=== PATIENT | female | born 1950 | race Caucasian/White ===

== ENCOUNTER → 2016-05-28 | Outpatient (CLI) | payer BC, OTHER ==
[~2016-05-28] MED LIST: ACID CONTROLLER10 MG PO; ALBUTEROL2.5 MG/0.5 INH; AMLODIPINE BESY10 MG PO; AMOX TR-K CLV1 EAC4 PO; ATIVAN1 MG PO; ATORVASTATIN CA10 MG PO; BENTYL20 MG PO; CARISOPRODOL 3350 MG PO; CARISOPRODOL350 MG PO; CARVEDILOL12.5 MG PO; DEPAKOTE500 MG PO; DESYREL300 MG PO; EFFEXOR; ENDOCET 10-3251 EACH PO; ENOXAPARIN30 MG/0.1 SQ; FELDENE PO; FELDENE20 MG PO; FENTANYL1 EAC1 TD; FLEXERIL PO; HYDRALAZINE20 MG/M1 IV; HYDROCODONE-AP1 EAC6 PO; HYZAAR 50-12.51 TAB PO; KLOR-CON 1010 MEQ PO; LACTULOSE10 GM/153 PO; LINZESS145 MCG PO; LORAZEPAM 1 MG T1 M1 PO; LORAZEPAM 1 MG T1 MG PO; MIRALAX17 GM PO; MIRALAX255 GM PO; NABUMETONE 500500 M1 PO; NEURONTIN 300300 M1 PO; NORCO 5-325 TA1 EACH PO; NORVASC 5 MG TAB5 MG PO; NUCYNTA100 MG PO; OXYCODONE-ACET1 EAC2 PO; OXYCONTIN10 M1 PO; OXYCONTIN40 MG PO; OXYCONTIN60 MG PO; PILOCARPINE HC7.5 MG PO; PIROXICAM20 MG PO; PREDNISONE 10 M10 MG PO; PREDNISONE 5 MG5 M1 PO; PREMARIN; PREMARIN0.3 MG PO; PREMARIN0.625 MG PO; PREMPRO 0.625-1 EACH PO; PREVIFEM1 EACH PO; RELAFEN500 MG PO; RESTORIL15 MG PO; RESTORIL30 MG PO; SAVELLA100 MG PO; SAVELLA50 MG PO; SIMVASTATIN20 MG PO; TOPAMAX 100 MG100 MG PO; TRAMADOL 50 MG50 MG PO; TRAZODONE 150150 M1 PO; TRAZODONE HCL50 MG PO; TYLENOL325 MG PO; ULTRAM 50MG TAB50 MG PO; VALIUM2 MG PO; VIVELLE-DOT1 EAC1 TD; ZANAFLEX6 MG PO; [UNRECOGNIZED DRUG - OTHER]; [UNRECOGNIZED DRUG - OTHER]
== END ==
LOC: NUC 07:39
DX: R07.9 Chest pain, unspecified (principal); R06.00 Dyspnea, unspecified; I10 Essential (primary) hypertension; E78.5 Hyperlipidemia, unspecified

== ENCOUNTER 2017-07-04 07:11 | Emergency (ER) | payer BC, OTHER ==
[~2017-07-04] VITALS: Ht 165.1 cm; Wt 48.5 kg
[~2017-07-04 07:11] MED LIST changes: +PERCOCET PO
[2017-07-04 07:25] VITALS: BP 148/78
[2017-07-04] MEDS ORDERED: OXYCONTIN15 MG PO (07:43)
== END 2017-07-04 08:04 | disposition home or self-care (01) ==
LOC: ER 07:11
DX: G89.29 Other chronic pain (principal); M54.5 Low back pain; Z76.0 Encounter for issue of repeat prescription; F41.9 Anxiety disorder, unspecified; M32.9 Systemic lupus erythematosus, unspecified; M79.7 Fibromyalgia; E78.5 Hyperlipidemia, unspecified; I10 Essential (primary) hypertension; Z88.2 Allergy status to sulfonamides; Z87.891 Personal history of nicotine dependence

== ENCOUNTER 2018-03-01 13:02 | Emergency (ER) | payer BC, OTHER ==
[~2018-03-01] VITALS: Ht 165.1 cm; Wt 49.4 kg
[~2018-03-01 13:02] MED LIST changes: +OXYCONTIN15 MG PO
[2018-03-01] MEDS ORDERED: MOBIC7.5 MG PO (16:32)
[2018-03-01] MEDS ORDERED: ZANAFLEX4 MG PO (16:32)
[2018-03-01 17:28] VITALS: BP 147/82
== END 2018-03-01 18:21 | disposition home or self-care (01) ==
LOC: ER 13:02
DX: M79.7 Fibromyalgia (principal); G89.29 Other chronic pain; Z87.891 Personal history of nicotine dependence; Z88.2 Allergy status to sulfonamides; F41.9 Anxiety disorder, unspecified; M32.9 Systemic lupus erythematosus, unspecified; I10 Essential (primary) hypertension; E78.5 Hyperlipidemia, unspecified; Z90.710 Acquired absence of both cervix and uterus

== ENCOUNTER 2018-10-12 10:02 | Emergency (ER) | payer BC, OTHER ==
[~2018-10-12] VITALS: Ht 160 cm; Wt 53.5 kg
[~2018-10-12 10:02] MED LIST changes: +MOBIC7.5 MG PO; +ZANAFLEX4 MG PO
[2018-10-12 11:15] LABS: HEMOGLOBIN 13.2 gm/dL (12.0-15.0); MCH 32.8 pg (26.0-34.0); MCHC 33.8 g/dL (28.0-37.0); MCV 96.9 fL (80.0-100.0); RBC 4.03 mil/uL (4.20-5.00); RDW 13.1 % (10.5-14.5); WBC 4.4 thou/uL (4.0-11.0)
[2018-10-12 11:19] LABS: CALCIUM 9.1 mg/dL (8.5-10.1); CREATININE 1.1 mg/dL (0.6-1.0); POTASSIUM 4.1 mmol/L (3.5-5.1)
[2018-10-12] MEDS ORDERED: TRAMADOL 50 MG50 MG PO (11:25)
[2018-10-12 11:56] VITALS: BP 152/62
== END 2018-10-12 11:57 | disposition home or self-care (01) ==
LOC: ER 10:02
PROVIDERS: Emergency Medicine
DX: M54.5 Low back pain (principal); G89.29 Other chronic pain; M79.7 Fibromyalgia; G20 Parkinson's disease; M32.9 Systemic lupus erythematosus, unspecified; I10 Essential (primary) hypertension; E78.5 Hyperlipidemia, unspecified; Z79.899 Other long term (current) drug therapy; Z88.2 Allergy status to sulfonamides; Z87.891 Personal history of nicotine dependence; Z90.710 Acquired absence of both cervix and uterus

== ENCOUNTER 2018-10-26 05:35 | Inpatient (IN) | payer BC, OTHER ==
[~2018-10-26] VITALS: Ht 165.1 cm; Wt 53.5 kg
[2018-10-26] VITALS (11 sets, daily range): BP systolic 94–154; BP diastolic 52–77
--- NOTE | ~2018-10-26 | H ---
[facility] [place] [address] HISTORY AND PHYSICAL Name: CASI ALFARO Room #: 201-P ADM IN M.R.#: [id number] Admission: 10/26/18 Attend Phys: Sameera Perry MD Discharge: Date of : 48 Report #: [id number] THIS REPORT FOR: //name// CC: Sameera Benson DATE OF SERVICE: 10/26/2018 PRIMARY CARE PHYSICIAN: Dr. Jam Benson. CHIEF COMPLAINT: Syncopal episode x 2 with a fall yesterday and today. HISTORY OF PRESENT ILLNESS: The patient is a very pleasant 68-year-old female with a known history of hypertension, fibromyalgia, scoliosis and chronic pain syndrome with DJD, recently got diagnosed with Parkinson disease. The patient informs me that yesterday she was not feeling well and felt lightheaded and dizzy and fell down. The patient informs me that this morning again at 2:00 o'clock in the morning she woke up and was taking her blood pressure medication and had another episode of syncope when her checked her blood pressure, lying down was 101 and standing was 70 and so he brought her to the hospital for further evaluation. The patient informs me that she has not had any associated bladder or bowel incontinence. She does not have any weakness or numbness of any part of the body and she had been dealing with weakness generalized and fatigue. The patient informs me that she saw a neurologist in [facility], Dr. Bonilla and recently was diagnosed with Parkinson disease; however, she has been on prednisone for a long time because of her fibromyalgia. Apparently, she is being tapered off of prednisone. She was on 10 mg daily. Now, she is on 4 mg daily. The patient denies any associated palpitations, chest pain or cough or hemoptysis. The patient denies any sore throat, sinus drainage, fever, chills, night sweats, nausea, vomiting, diarrhea or constipation. Three months ago, she had lower back pain that started, however, after the fall yesterday and today her back pain has exacerbated significantly. PAST MEDICAL HISTORY: Significant for; 1. Hypertension. 2. Fibromyalgia. 3. Chronic pain syndrome. 4. Scoliosis. 5. Hormone replacement therapy. 6. Hyperlipidemia. 7. Elevated calcium score on cardiac CT. PAST SURGICAL HISTORY: The patient has had; 1. Left upper rib removal. 2. Breast augmentation. 3. Left TMJ surgery. [address] [address] HISTORY AND PHYSICAL Name: CASI ALFARO DAMON Room #: 201-P [facility] IN M.R.#: [id number] Admission: 10/26/18 Attend Phys: Sameera Perry MD Discharge: Date of : 48 Report #: [id number] 4. Bilateral carpal tunnel surgery. 5. Left ankle surgery. 6. Hysterectomy. 7. Small-bowel obstruction and surgery. ALLERGIES: The patient is allergic to SULFA, which causes swelling and hives. PERSONAL AND SOCIAL HISTORY: The patient quit tobacco 40 years ago and does not drink alcohol. Lives at home with her and is full code. FAMILY HISTORY: Mother with CHF and father after the third myocardial infarction and at the time of , he was 56 years old. REVIEW OF SYSTEMS: A 10-point review of systems was done and please see the HPI above. PHYSICAL EXAMINATION: VITAL SIGNS: When the patient presented to the ER, the patient had a heart rate 63, respirations 16, blood pressure 94/52, pulse oximeter 95% on room air and weight is 53.52 kilos. GENERAL: Alert and oriented to time, place and person. Very pleasant female who is in no acute distress and eating lunch. HEENT: Normocephalic, atraumatic. Pupils equally round, reactive to light. Conjunctivae clear. Sclerae nonicteric. Extraocular muscle movement intact. Oropharynx is clear. Mucous membranes moist. NECK: Supple. No JVD, no lymphadenopathy. HEART: S1, S2, regular. No murmur, no S3, no S4. LUNGS: Clear to auscultation bilaterally, without any crackles or wheezes. ABDOMEN: Soft, nontender, nondistended, normal active bowel sounds. EXTREMITIES: No edema both lower extremities. NEUROLOGIC: Completely nonfocal. SKIN: Bilateral cheeks with rosacea like appearance and no rash otherwise noted and no skin breakdown noted. MUSCULOSKELETAL: The patient has scoliosis in back, but no CVA tenderness noted. HOME MEDICATIONS: 1. Tramadol. 2. Tizanidine. 3. Meloxicam. 4. Atorvastatin. 5. Topiramate. 6. Trazodone. 7. Oxycodone. 8. Premarin. 9. Tylenol. [address] [address] HISTORY AND PHYSICAL Name: CASI ALFARO Room #: 201-P [facility] IN M.R.#: [id number] Admission: 10/26/18 Attend Phys: Sameera Perry MD Discharge: Date of : 48 Report #: [id number] 10. Milnacipran. 11. Linzess or linaclotide. LABORATORY AND X-RAYS: Sodium 140, potassium 3.5, chloride 106, bicarbonate 26, anion gap 8, BUN 21, creatinine 1.1, calculated GFR 49, glucose 94, calcium 9.0, total bilirubin 0.3, AST 10, ALT 18, alkaline phosphatase 39. Troponin I less than 0.06. Total protein 6.5, albumin 3.5. Hematology indicates WBC 5.8, hemoglobin 13.7, hematocrit 40.3, platelet count 172. Differential within normal limits. Urinalysis completely negative with a pH ____. Chest x-ray, CT scan of the head is negative. No acute process and the chest x-ray is completely negative as well. EKG normal sinus rhythm and rate controlled. ASSESSMENT AND PLAN: 1. Fall with syncopal episode, sudden onset, appears to be related to postural changes. The patient had been on prednisone for a long time with a presumed diagnosis of lupus and fibromyalgia and she is being tapered off of it. We will go ahead and add 8 a.m. cortisol level for tomorrow and if abnormal, then we will consult endocrine and work up adrenal insufficiency. 2. The patient is on Premarin and is a very high risk for venous thromboembolic activity. The patient does not have any lower extremity edema; however, we will go ahead and check D-dimer and if D-dimer is elevated, then we will do CTA chest, PE protocol. 3. Recent diagnosis of Parkinson disease. The patient is currently not on any medication. With new onset of syncopal episode and new diagnosis of Parkinson disease, we will go ahead and consult Neurology and see if the patient's diagnostic workup can be completed and management can be started. 4. Fibromyalgia. We will resume her home medications. 5. Hypertension. The patient is on Coreg. I will cut down on the dose of Coreg as the patient has significant bradycardia, so we will keep the heart rate around 60 if possible. 6. Hyperlipidemia. Resume her statin. 7. We will check CPK as well and AST is normal. 8. Chronic back pain with acute exacerbation after the fall. The patient has been on 15 mg of OxyContin p.o. q.6 hours p.r.n. extended release, which is extremely high dose and she is on meloxicam as well and tizanidine and tramadol. We will check the medication list history ____ discuss with the primary care physician on what the patient ____ discussed with the patient about gabapentin. We will hold nonsteroidal anti-inflammatory drug. 9. Deep vein thrombosis prophylaxis with heparin and GI prophylaxis with Pepcid. Gentle hydration. The patient has normal urine specific gravity and by clinical exam, she does not appear to be dehydrated, so I am not sure IV fluids will help in any way. However, BUN is mildly elevated, [place] [address] HISTORY AND PHYSICAL Name: ANGELINACASI DAMON Room #: 201-P [facility] IN M.R.#: [id number] Admission: 10/26/18 Attend Phys: Sameera Perry MD Discharge: Date of : 48 Report #: [id number] and give her normal saline fluid and we will keep track of hemoglobin as well as the patient has history of ____. Plan of care was discussed with the patient. By: 2214 2340 Sameera Perry MD /nt
[2018-10-26 06:51] LABS: URINE BILIRUBIN NEGATIVE (Negative); URINE BLOOD NEGATIVE (Negative); URINE COLOR YELLOW; URINE GLUCOSE-RANDOM* NEGATIVE (Negative); URINE KETONES NEGATIVE (Negative); URINE LEUKOCYTES NEGATIVE (Negative); URINE NITRITE NEGATIVE (Negative); URINE PROTEIN (DIPSTICK) NEGATIVE (Negative); URINE SPECIFIC GRAVITY 1.015 (1.005-1.035)
[2018-10-26 06:54] LABS: URINE CLARITY HAZY
[2018-10-26 06:57] LABS: ABSOLUTE NEUTROPHILS 3.7 thou/uL (1.4-8.2); BASOPHILS 1.5 % (0.0-2.0); EOSINOPHILS 1.6 % (0.0-3.0); HEMATOCRIT 40.3 % (37.0-47.0); HEMOGLOBIN 13.7 gm/dL (12.0-15.0); LYMPHOCYTES 27.7 % (24.0-44.0); MCH 32.9 pg (26.0-34.0); MCHC 33.9 g/dL (28.0-37.0); MONOCYTES 6.3 % (1.0-8.0); PLATELET COUNT 172 thou/uL (150-400); POLYS 62.9 % (36.0-66.0); RBC 4.15 mil/uL (4.20-5.00); RDW 13.1 % (10.5-14.5); WBC 5.8 thou/uL (4.0-11.0)
[2018-10-26 07:01] LABS: ANION GAP 8 mmol/L (7-16); BUN 21 mg/dL (7-18); CHLORIDE 106 mmol/L (98-107); CO2 26 mmol/L (21-32); CREATININE 1.1 mg/dL (0.6-1.0); GLUCOSE 94 mg/dL (74-106); POTASSIUM 3.5 mmol/L (3.5-5.1); SODIUM 140 mmol/L (136-145)
[2018-10-26 07:11] LABS: ALBUMIN 3.5 g/dL (3.4-5.0); SGOT 10 U/L (15-37); SGPT 18 U/L (30-65); TOTAL BILIRUBIN 0.3 mg/dL (<0.1-1.0); TOTAL PROTEIN 6.5 g/dL (6.4-8.2); TROPONIN-I <0.06 ng/mL (<0.06)
--- NOTE | 2018-10-26 08:42 | EKG ---
[place] [place] [address] [facility] [place] [address] ELECTROCARDIOGRAM REPORT Name: ANGELINACASI DAMON [id number] Admission: 10/26/18 Attend Phys: Discharge: Date of : 48 Report #: [id number] THIS REPORT FOR: //name// [facility] ED Test Date: 2018-10-26 Test Time: 06:36:54 Pat Name: CASI ALFARO Department: Room: Gender: F Insulation Hoseman: augie : 1950 Requested By: Navid Man Order Number: [id number] MD: Rudolph Hook Measurements Intervals [place] Rate: 55 P: 51 VA: 131 QRS: 36 QRSD: 87 T: 45 QT: 428 QTc: 410 Interpretive Statements Sinus bradycardia Atrial premature complex Baseline wander in lead(s) I,II,aVR Compared to ECG 12/24/2016 10:20:24 Atrial premature complex(es) now present Electronically Signed On 10-26-2018 8:42:13 CDT by Rudolph Hook [email or web address] <ELECTRONICALLY SIGNED> By: Rudolph Hook MD, [facility] 10/26/18 0842 [id number] 5 Rudolph Hook MD, FACC /EPI
[2018-10-26] MEDS ORDERED: COREG25 MG PO (12:50)
[2018-10-26] MEDS ORDERED: ATIVAN1 MG PO (12:51)
[2018-10-26] MEDS ORDERED: MYRBETRIQ50 MG PO (12:51)
[2018-10-26] MEDS ORDERED: CARBAMAZEPINE100 M2 PO (12:53)
[2018-10-26] MEDS ORDERED: LUNESTA3 MG PO (12:53)
[2018-10-26] MEDS ORDERED: CYMBALTA60 MG PO (12:54)
--- NOTE | 2018-10-26 16:28 | NUR ---
PT ADMITED FROM ER. ADMISSION HX AND ASSESSMENT COMPLETED. VSS. PT ORIENTED TO THE ROOM AND THE CALL SYSTEM. ORDERS NOTED. FALL PRECAUTION IMPLEMENTED. SB ON TELE. WILL CONTINUE TO MONITOR.
[2018-10-26] MEDS ORDERED: TRAZODONE 150150 M1 PO (20:30)
[2018-10-27] VITALS (10 sets, daily range): BP systolic 123–173; BP diastolic 75–91
--- NOTE | 2018-10-27 04:06 | NUR ---
ASSUMED CARE AT 1900. PT C/O PAIN IN UPPER BACK AND NECK AREA. PAIN MANAGED WITH MEDICATION. WILL CONTINUE TO MONITOR PT PER PLAN OF CARE.
[2018-10-27 08:43] LABS: HEMATOCRIT 38.6 % (37.0-47.0); HEMOGLOBIN 13.2 gm/dL (12.0-15.0); MCH 33.3 pg (26.0-34.0); MCHC 34.1 g/dL (28.0-37.0); MCV 97.6 fL (80.0-100.0); RBC 3.95 mil/uL (4.20-5.00); RDW 13.4 % (10.5-14.5); WBC 4.4 thou/uL (4.0-11.0)
[2018-10-27 08:52] LABS: CALCIUM 8.8 mg/dL (8.5-10.1); CREATININE 0.9 mg/dL (0.6-1.0); POTASSIUM 3.9 mmol/L (3.5-5.1)
--- NOTE | 2018-10-27 10:30 | 2DMMODE ---
[facility] [place] [address] 2 D/M-MODE ECHOCARDIOGRAM Name: CASI ALFARO DAMON Room #: 201-P ADM IN M.R.#: [id number] Admission: 10/26/18 Attend Phys: Sameera Perry, Discharge: Date of : 48 Date of Service: 10/27/18 1030 Report #: [id number] THIS REPORT FOR: //name// APPROVED REPORT Study performed: 10/27/2018 09:04:40 EXAM: Comprehensive 2D, Doppler, and color-flow Echocardiogram Patient Location: Echo lab Room #: 201 Status: routine BSA: 1.58 HR: 77 bpm BP: 173/91 mmHg Rhythm: NSR Other Information Study Quality: Adequate/breast implants/no subcostal view. Indications Near syncope. Hx: HTN, HLP. 2D Dimensions RVDd: 30.95 mm IVSd: 10.33 (7-11mm) LVOT Diam: 21.41 (18-24mm) LVDd: 42.79 mm PWd: 9.65 (7-11mm) Ascending Ao: 33.25 (22-36mm) LVDs: 26.36 (25-40mm) Aortic Root: 34.88 mm Volumes Left Atrial Volume (Systole) Single Plane 4CH: 27.88 mL Single Plane 2CH: 33.83 mL LA ESV Index: 22.00 mL/m2 Aortic Valve AoV Peak Nahun.: 1.24 m/s AO Peak Gr.: 6.16 mmHg LVOT Max P.55 mmHg LVOT Max V: 1.07 m/s ALVAREZ Vmax: 3.09 cm2 Mitral Valve E/A Ratio: 0.8 MV Decel. Time: 325.38 ms [facility] [address] [place] [address] 2 D/M-MODE ECHOCARDIOGRAM Name: CASI ALFARO [facility] Room #: 201-P [facility] IN .R.#: [id number] Admission: 10/26/18 Attend Phys: Sameera Perry, Discharge: Date of : 48 Date of Service: 10/27/18 1030 Report #: [id number] E Max Nahun.: 0.55 m/s MV A Nahun.: 0.71 m/s MV PHT: 94.36 ms IVRT: 69.20 ms Pulmonary Valve PV Peak Nahun.: 0.95 m/s PV Peak Gr.: 3.59 mmHg Pulmonary Vein P Vein S: 0.66 m/s P Vein A: 0.40 m/s P Vein D: 0.37 m/s P Vein A Dur.: 110.7 msec P Vein S/D Ratio: 1.78 Tricuspid Valve TR Peak Nahun.: 2.35 m/s TR Peak Gr.: 22.16 mmHg Left Ventricle The left ventricle is normal size. There is normal LV segmental wall motion. Moderate basal septal hypertrophy is present. Left ventricular systolic function is normal. LVEF is 60-65%. Mild diastolic dysfunction is present (impaired relaxation pattern). Right Ventricle The right ventricle is normal size. The right ventricular systolic function is normal. Atria The left atrium size is normal. The right atrium size is normal. Aortic Valve The aortic valve is normal in structure; mildly sclerotic. No aortic regurgitation is present. There is no aortic valvular stenosis. Mitral Valve The mitral valve is normal in structure. Trace mitral regurgitation. Tricuspid Valve The tricuspid valve is normal in structure. Mild tricuspid regurgitation. Estimated PAP is 22mmHg plus the right atrial pressure. [facility] [address] [place] [address] 2 D/M-MODE ECHOCARDIOGRAM Name: CASI ALFARO [facility] Room #: 201-P [facility] IN M.R.#: [id number] Admission: 10/26/18 Attend Phys: Sameera Perry, Discharge: Date of : 48 Date of Service: 10/27/18 1030 Report #: [id number] Pulmonic Valve Pulmonic valve is not well visualized. Trace pulmonic regurgitation. Great Vessels The aortic root is normal in size. The ascending aorta is normal in size. IVC is not well visualized. Pericardium There is no pericardial effusion. <Conclusion> The left ventricle is normal size. Left ventricular systolic function is normal. Mild diastolic dysfunction is present (impaired relaxation pattern). The right ventricle is normal size. The left atrium size is normal. The aortic valve is normal in structure; mildly sclerotic. Trace mitral regurgitation. Mild tricuspid regurgitation. Estimated PAP is 22mmHg plus the right atrial pressure. <ELECTRONICALLY SIGNED> By: Francisco Sheppard MD 10/27/18 1030 1030 1030 Francisco Sheppard MD /INF
--- NOTE | 2018-10-27 14:52 | NUR ---
PT ALERT AND ORIENTED. RECEIVED PRN PAIN MED WITH PARTIAL RELIEF. EVALUATED WITH PT AND OT. NEW ORDERS NOTED. FALL PRECAUTION IN PLACE. WILL CONTINUE TO MONITOR.
--- NOTE | 2018-10-27 17:53 | NUR ---
Chart reviewed and case discussed with the care team. Pt lives indep with her spouse. She has a cane and recently spouse purchased a rwalker. She has complex medical history as well as a hx of prescription drug abuse. She has had hh in the remote past. PT and OT win reviewed and outpt PT program for new parkinsons dx recommended;however pt declined. No hh or snf referrals indicated. Pt has needed dme and supportive spouse at home. No cm interventions indicated at this time. Will remain available should dc needs arise.
--- NOTE | 2018-10-28 04:29 | NUR ---
PT RESTING IN BED. REMAINS ON RA. PT SR/SB ON MONITOR. PT REQUIRED DOSES OF PAIN MEDS AND ANTI ANXIETY MEDS DURING SHIFT.
[2018-10-28 05:18] VITALS: BP 145/74
[2018-10-28 08:00] VITALS: BP 141/66
--- NOTE | 2018-10-28 10:10 | NUR ---
Assessed initially for low BMI however wt of 92 lb inaccurate. Pt states was reweighed standing and weighted 118 lb which is her usual wt. Corrected BMI is 21 which is healthy wt. Eating 75-100% and usually likes to drink an ensure supplement so will order. Low nutrition risk
[2018-10-28 12:00] VITALS: BP 178/79
[2018-10-28 16:00] VITALS: BP 146/71
--- NOTE | 2018-10-28 16:31 | NUR ---
ASSESSMENT CHARTED. PT ALERT AND ORIENTED. VSS. RECEIVED PRN PAIN MED WITH PARTIAL RELIEF. NO CONCERNS AT THIS TIME. PROGRESSING WELL TOWARDS DISCHARGE GOAL. WILL CONTINUE TO MONITOR.
[2018-10-28 20:00] VITALS: BP 148/87
[2018-10-28 20:26] VITALS: BP 148/87
[2018-10-29] VITALS (7 sets, daily range): BP systolic 117–144; BP diastolic 66–75
[2018-10-29 02:07] LABS: CORTISOL 30 MIN 7.2 ug/dL (Not Estab.); CORTISOL 60 MIN 9.6 ug/dL (Not Estab.)
--- NOTE | 2018-10-29 05:56 | NUR ---
A/O X 4.UP WITH STANDBY ASSIST.HEADACHE FAIRLY CONTROLLED BY PAIN PILL.MORPHINE GIVEN THIS MORNING.MONITOR SHOWS SR.WILL CONTINUE POC.
--- NOTE | 2018-10-29 11:26 | HC ---
[facility] [place] [address] CONSULTATION Name: ANGELINACASI DAMON Room #: 201-P [facility] IN M.R.#: [id number] Admission: 10/26/18 Attend Phys: Sameera Perry MD Discharge: Date of : 48 Report #: [id number] THIS REPORT FOR: //name// CC: PRIMARY CARE Sameera Perry Doug Benson DATE OF SERVICE: 10/28/2018 ENDOCRINE CONSULTATION CONSULTING PHYSICIAN: Dr. Sameera Perry. REASON FOR CONSULTATION: Adrenal insufficiency. HISTORY OF PRESENT ILLNESS: This is a 68-year-old female patient who was admitted on 10/26/2018 following a presentation dominated by weakness starting days before presentation. The patient notes that this was associated with near syncope the day before admission. She notes that over the past few weeks, she has had a progressive decline in her blood pressure associated with lightheadedness, weakness and fatigue. Interestingly, the patient has been on active treatment with prednisone 10 mg daily for at least 5 years for presumed fibromyalgia. As of recently, her prednisone therapy was weaned down to where she is currently taking 4 mg daily. This has not been associated with abdominal pain, nausea, vomiting or skin changes. REVIEW OF SYSTEMS: CONSTITUTIONAL: Fatigue, tiredness, some weight loss. HEENT: Negative for ear discharge or sinus pain. PULMONARY: Negative for shortness of breath, cough or hemoptysis. CARDIAC: Near syncope, no palpitations, no chest pain. GASTROINTESTINAL: No abdominal pain, nausea, vomiting or changes in bowel movement frequency. NEUROLOGY: Lightheadedness, near syncope, no seizures, no headaches. UROLOGY: No dysuria, hematuria, or frequency. Otherwise, review of systems noncontributory other than those mentioned in HPI. PAST MEDICAL HISTORY: Noted for: 1. Anxiety. 2. Lupus. 3. Fibromyalgia. 4. Hypertension. 5. Hyperlipidemia. OUTPATIENT MEDICATIONS: Include tramadol, tizanidine, meloxicam, atorvastatin, topiramate and Premarin. [address] [address] CONSULTATION Name: CASI ALFARO Room #: 201-P [facility] IN .R.#: [id number] Admission: 10/26/18 Attend Phys: Sameera Perry MD Discharge: Date of : 48 Report #: [id number] ALLERGIES: SULFA. FAMILY HISTORY: Noncontributory. SOCIAL HISTORY: . She has 1 child. She denies use of tobacco or alcohol. LABORATORY RESULTS: Sodium 138, potassium 3.9, chloride 106, CO2 of 27, anion gap 5, BUN 14, creatinine 0.9, glucose 91. AST 10. Amylase 81, lipase 40. Total bilirubin 0.3, direct bilirubin 0.1, calcium 8.8, phosphorus 4.8, magnesium 2.2, alkaline phosphatase 39, ALT 18, total protein 6.5, albumin 3.5, GFR 62. GFRs baseline is between 40 and 50. Troponin less than 0.06. Drug screen is negative. White blood count 4.4, hemoglobin 13.2, hematocrit 38.6, platelets 150. Prealbumin is 7.0. Cortisol is 1.0. TSH 1.529. ASSESSMENT AND PLAN: 1. Adrenal insufficiency. This is being suspected based on the patient's clinical presentation an outlook as well as her background as noted for long-term glucocorticoid therapy that has been weaned off recently. Certainly this could be a setup for adrenal insufficiency on the notion of diminished endogenous cortisol production. This was discussed with the patient at length and I explained that this clinical suspicion had been further augmented by her significantly low random cortisol level of 1.0. That said, I find it prudent to proceed with a confirmation testing in the form of ACTH stimulation test, which will be conducted as soon as possible to further verify her adrenal functional status and determine the necessary line of treatment now and senior living. 2. Chronic kidney disease. The patient has a baseline that is noted for chronic kidney disease, stage 3B, but is actually currently consistent with stage 2. 3. Hyperlipidemia. The patient is maintained on atorvastatin as an outpatient. She is advised to continue with the same. I appreciate this consultation by Dr. Perry. <ELECTRONICALLY SIGNED> By: Tika Acevedo MD 10/29/18 1126 [id number] Tika Acevedo MD /nt
--- NOTE | 2018-10-29 15:23 | NUR ---
PT ALERT AND ORIENTED. VSS. RECEIVED PRN PAIN MED FOR [place] WITH PARTIAL RELIEF. REQUESTED HER PAIN MED TO BE CHANGED TO A STRONGER DOSE. MD NOTIFIED. AMBULATED X1 IN THE HALLWAY. WILL CONTINUE TO MONITOR.
--- NOTE | 2018-10-29 18:28 | NUR ---
TRANSFERED FROM 2 N TO 4W. AAOX4 PLESANT AND COOOPERATIVE. DENIES PAIN AT THIS TIME. AMBULATES WITH SLOW STEADY GAIT. ORIENT TO ROOM AND UNIT. CALLL LIGHT WITHIN REACH.
--- NOTE | 2018-10-29 20:14 | NUR ---
RECEIVED REPORT FROM OFFGOING DAY NURSE, ASSUMED CARE @ 19:15. A&OX 4 SL IN RFA. REPORTS BACK PAIN 05/01, REQUESTS TRAZADONE AT HS AND POSSIBLY LORAZEPAM IN NOC. HRRR, LUNGS CTA ALL CHANEY, AABD NORMOACTIVE X Q.
[2018-10-30 08:00] VITALS: BP 135/64
[2018-10-30 10:33] VITALS: BP 137/77
[2018-10-30] MEDS ORDERED: PREDNISONE 5 MG5 M1 PO ×2 (11:58→11:59)
[2018-10-30 12:38] VITALS: BP 137/77
--- NOTE | 2018-10-30 16:50 | NUR ---
PATIENT ALERT AND ORIENTED AND COOPERATIVE WITH POC. PATIENT DISCHARGED HOME IN STABLE CONDITION WITH DISCHARGE INSTRUCTIONS, PRESCRIPTIONS VIA WHEEL CHAIR WITH . DISCHARGED WITH ALL PERSONAL BELONGINGS.
== END 2018-10-30 14:07 | disposition home or self-care (01) | DRG 312 ==
LOC: ER 05:35 → EROBS 09:30 → 2N 09:30 → 4W 09:30 → 2N 11:17 → ENTRNSPT 15:15 → EDTRNSPTSTS 15:31 → DELTRNSPT 10-27 09:37 → 4W 10-29 17:41
PROVIDERS: Emergency Medicine; Internal Medicine; ADMIT Internal Medicine
DX: I95.1 Orthostatic hypotension (principal); E27.40 Unspecified adrenocortical insufficiency; I12.9 Hypertensive chronic kidney disease with stage 1 through stage 4 chronic kidney disease, or unspecified chronic kidney disease; R00.1 Bradycardia, unspecified; E78.00 Pure hypercholesterolemia, unspecified; N18.3 Chronic kidney disease, stage 3 (moderate); F41.9 Anxiety disorder, unspecified; M41.9 Scoliosis, unspecified; E07.9 Disorder of thyroid, unspecified; F32.9 Major depressive disorder, single episode, unspecified; M19.90 Unspecified osteoarthritis, unspecified site; G89.4 Chronic pain syndrome; G20 Parkinson's disease; M79.7 Fibromyalgia; M32.9 Systemic lupus erythematosus, unspecified; E78.5 Hyperlipidemia, unspecified; Z90.710 Acquired absence of both cervix and uterus; Z88.2 Allergy status to sulfonamides; Z79.899 Other long term (current) drug therapy; Z82.49 Family history of ischemic heart disease and other diseases of the circulatory system
CPT/HCPCS: 10047; 10081

== ENCOUNTER 2018-12-14 07:10 | Emergency (ER) | payer BC ==
[~2018-12-14] VITALS: Ht 165.1 cm; Wt 52.6 kg
[~2018-12-14 07:10] MED LIST changes: +CARBAMAZEPINE100 M2 PO; +COREG25 MG PO; +CYMBALTA60 MG PO; +LUNESTA3 MG PO; +MYRBETRIQ50 MG PO
[2018-12-14 07:44] LABS: ABSOLUTE NEUTROPHILS 2.6 thou/uL (1.4-8.2); BASOPHILS 1.4 % (0.0-2.0); HEMATOCRIT 43.3 % (37.0-47.0); HEMOGLOBIN 14.7 gm/dL (12.0-15.0); LYMPHOCYTES 38.3 % (24.0-44.0); MCH 33.8 pg (26.0-34.0); MCV 99.5 fL (80.0-100.0); MONOCYTES 8.3 % (1.0-8.0); PLATELET COUNT 178 thou/uL (150-400); RBC 4.36 mil/uL (4.20-5.00); RDW 13.3 % (10.5-14.5); WBC 5.1 thou/uL (4.0-11.0)
[2018-12-14 07:56] LABS: ANION GAP 13 mmol/L (7-16); APTT 27.3 Seconds (24.5-32.8); BUN 17 mg/dL (7-18); CALCIUM 9.6 mg/dL (8.5-10.1); CHLORIDE 103 mmol/L (98-107); CO2 20 mmol/L (21-32); CREATININE 1.1 mg/dL (0.6-1.0); GLUCOSE 80 mg/dL (74-106); POTASSIUM 3.6 mmol/L (3.5-5.1); PROTIME 10.7 Seconds (9.3-11.4); SODIUM 136 mmol/L (136-145)
[2018-12-14 08:06] LABS: ALBUMIN 3.8 g/dL (3.4-5.0); SGOT 13 U/L (15-37); SGPT 17 U/L (30-65); TOTAL BILIRUBIN 0.3 mg/dL (<0.1-1.0); TOTAL PROTEIN 7.1 g/dL (6.4-8.2); TROPONIN-I <0.06 ng/mL (<0.06)
[2018-12-14] MEDS ORDERED: ATORVASTATIN CA20 MG PO (10:01)
[2018-12-14] MEDS ORDERED: CYCLOBENZAPRINE10 MG PO (10:02)
[2018-12-14] MEDS ORDERED: BUTALB-APAP-CA1 EACH PO (11:26)
[2018-12-14 12:12] VITALS: BP 154/87
--- NOTE | 2018-12-14 17:33 | EKG ---
[address] [place] [address] [place] [address] ELECTROCARDIOGRAM REPORT Name: CASI ALFARO DAMON [id number] Admission: 12/14/18 Attend Phys: Discharge: 12/14/18 Date of : 48 Report #: [id number] THIS REPORT FOR: //name// [facility] ED Test Date: 2018-12-14 Test Time: 07:14:52 Pat Name: CASI ALFARO Department: Room: Gender: F Guncotton Packer: NMD : 1950 Requested By: Abdelrahman Fox Order Number: [id number] MD: Rudolph Hook Measurements Intervals [place] Rate: 81 P: 44 ND: 139 QRS: 46 QRSD: 85 T: 47 QT: 362 QTc: 421 Interpretive Statements Sinus rhythm No significant abnormality Compared to ECG 10/26/2018 06:36:54 Sinus bradycardia no longer present Atrial premature complex(es) no longer present Electronically Signed On 12-14-2018 17:33:26 CDT by Rudolph Hook [email or web address] <ELECTRONICALLY SIGNED> By: Rudolph Hook MD, [facility] 12/14/18 1733 0714 3 Rudolph Hook MD, FACC /EPI
== END 2018-12-14 12:12 | disposition home or self-care (01) ==
LOC: ER 07:10
PROVIDERS: Emergency Medicine
DX: E27.40 Unspecified adrenocortical insufficiency (principal); R07.9 Chest pain, unspecified; R06.4 Hyperventilation; R51 Headache; R06.00 Dyspnea, unspecified; I12.9 Hypertensive chronic kidney disease with stage 1 through stage 4 chronic kidney disease, or unspecified chronic kidney disease; E78.5 Hyperlipidemia, unspecified; G20 Parkinson's disease; N18.9 Chronic kidney disease, unspecified; M32.9 Systemic lupus erythematosus, unspecified; M79.7 Fibromyalgia; F41.9 Anxiety disorder, unspecified; Z87.891 Personal history of nicotine dependence; Z90.710 Acquired absence of both cervix and uterus; Z88.2 Allergy status to sulfonamides

== ENCOUNTER → 2018-12-22 | Outpatient (CLI) | payer BC, OTHER ==
[~2018-12-22] MED LIST changes: +ATORVASTATIN CA20 MG PO; +BUTALB-APAP-CA1 EACH PO; +CYCLOBENZAPRINE10 MG PO
== END ==
LOC: NUC 08:13
DX: R93.1 Abnormal findings on diagnostic imaging of heart and coronary circulation (principal); R07.9 Chest pain, unspecified; I10 Essential (primary) hypertension; E78.5 Hyperlipidemia, unspecified; Z79.899 Other long term (current) drug therapy; Z88.2 Allergy status to sulfonamides

== ENCOUNTER 2019-02-08 09:01 | Emergency (ER) | payer BC, OTHER ==
[~2019-02-08] VITALS: Ht 165.1 cm; Wt 53.1 kg
[2019-02-08 09:36] LABS: WBC 5.4 thou/uL (4.0-11.0)
[2019-02-08 09:37] LABS: HEMATOCRIT 38.9 % (37.0-47.0); HEMOGLOBIN 13.1 gm/dL (12.0-15.0); MCH 33.3 pg (26.0-34.0); MCHC 33.8 g/dL (28.0-37.0); MCV 98.7 fL (80.0-100.0); RBC 3.94 mil/uL (4.20-5.00); RDW 12.7 % (10.5-14.5)
[2019-02-08 09:43] LABS: ANION GAP 8 mmol/L (7-16); BUN 14 mg/dL (7-18); CALCIUM 9.3 mg/dL (8.5-10.1); CHLORIDE 105 mmol/L (98-107); CO2 25 mmol/L (21-32); CREATININE 1.1 mg/dL (0.6-1.0); GLUCOSE 116 mg/dL (74-106); POTASSIUM 4.2 mmol/L (3.5-5.1); SODIUM 138 mmol/L (136-145)
[2019-02-08 09:52] LABS: ALBUMIN 3.4 g/dL (3.4-5.0); SGOT 15 U/L (15-37); SGPT 17 U/L (30-65); TOTAL BILIRUBIN 0.3 mg/dL (<0.1-1.0); TOTAL PROTEIN 6.5 g/dL (6.4-8.2); TROPONIN-I <0.06 ng/mL (<0.06)
[2019-02-08 11:39] LABS: URINE BILIRUBIN NEGATIVE (Negative); URINE BLOOD NEGATIVE (Negative); URINE CLARITY CLEAR; URINE COLOR YELLOW; URINE GLUCOSE-RANDOM* NEGATIVE (Negative); URINE KETONES NEGATIVE (Negative); URINE LEUKOCYTES-REFLEX TRACE (Negative); URINE NITRITE-REFLEX NEGATIVE (Negative); URINE PROTEIN (DIPSTICK) NEGATIVE (Negative); URINE UROBILINOGEN 0.2 E.U./dl (0.2-1.0)
[2019-02-08 11:45] VITALS: BP 145/66
--- NOTE | 2019-02-09 09:38 | EKG ---
[place] [address] [facility] [place] [address] ELECTROCARDIOGRAM REPORT Name: ANGELINACASI DAMON [id number] Admission: 02/08/19 Attend Phys: Discharge: 02/08/19 Date of : 48 Report #: [id number] THIS REPORT FOR: //name// [facility] ED Test Date: 2019-02-08 Test Time: 09:49:05 Pat Name: CASI ALFARO Department: Room: Gender: F Roustabout Crew Leader: kkinjuan ramonjame : 1950 Requested By: Jessica Gomez Order Number: [id number] MD: Rudolph Hook Measurements Intervals [place] Rate: 56 P: 52 ID: 130 QRS: 51 QRSD: 82 T: 52 QT: 391 QTc: 378 Interpretive Statements Sinus bradycardia Otherwise no significant abnormality Compared to ECG 12/14/2018 07:14:52 No significant changes Electronically Signed On 02-09-2019 9:38:16 MEASURING MACHINE TENDER by Rudolph Hook [email or web address] <ELECTRONICALLY SIGNED> By: Rudolph Hook MD, [facility] 02/09/19 0938 0949 0949 Rudolph Hook MD, FACC /EPI
== END 2019-02-08 11:50 | disposition home or self-care (01) ==
LOC: ER 09:01
PROVIDERS: Student in an Organized Health Care Education/Training Program
DX: S00.83XA Contusion of other part of head, initial encounter (principal); R53.1 Weakness; I10 Essential (primary) hypertension; E78.5 Hyperlipidemia, unspecified; M79.7 Fibromyalgia; M54.9 Dorsalgia, unspecified; G20 Parkinson's disease; G89.29 Other chronic pain; F41.9 Anxiety disorder, unspecified; Z90.710 Acquired absence of both cervix and uterus; Z87.891 Personal history of nicotine dependence; Z88.2 Allergy status to sulfonamides; X58.XXXA Exposure to other specified factors, initial encounter; Y93.89 Activity, other specified; Y92.89 Other specified places as the place of occurrence of the external cause; Y99.8 Other external cause status

== ENCOUNTER 2019-02-22 07:05 | Emergency (ER) | payer BC, OTHER ==
[~2019-02-22] VITALS: Ht 165.1 cm; Wt 53.1 kg
[2019-02-22] MEDS ORDERED: TIZANIDINE HCL4 M1 PO (07:29)
[2019-02-22 08:21] LABS: URINE BILIRUBIN NEGATIVE (Negative); URINE BLOOD 3+ (Negative); URINE CLARITY CLOUDY; URINE COLOR YELLOW; URINE GLUCOSE-RANDOM* NEGATIVE (Negative); URINE KETONES NEGATIVE (Negative); URINE NITRITE-REFLEX NEGATIVE (Negative); URINE PROTEIN (DIPSTICK) TRACE (Negative)
[2019-02-22 08:22] LABS: URINE LEUKOCYTES-REFLEX 1+ (Negative)
[2019-02-22 08:26] LABS: ABSOLUTE NEUTROPHILS 5.1 thou/uL (1.4-8.2); BASOPHILS 0.6 % (0.0-2.0); EOSINOPHILS 1.1 % (0.0-3.0); HEMATOCRIT 44.2 % (37.0-47.0); HEMOGLOBIN 14.9 gm/dL (12.0-15.0); LYMPHOCYTES 17.7 % (24.0-44.0); MCHC 33.6 g/dL (28.0-37.0); PLATELET COUNT 165 thou/uL (150-400); POLYS 74.6 % (36.0-66.0); RBC 4.51 mil/uL (4.20-5.00); RDW 12.8 % (10.5-14.5); WBC 6.8 thou/uL (4.0-11.0)
[2019-02-22 08:29] LABS: ANION GAP 8 mmol/L (7-16); BUN 17 mg/dL (7-18); CHLORIDE 105 mmol/L (98-107); CO2 29 mmol/L (21-32); GLUCOSE 86 mg/dL (74-106); POTASSIUM 3.9 mmol/L (3.5-5.1); SODIUM 142 mmol/L (136-145)
[2019-02-22 08:33] LABS: SQUAMOUS 4-10 Moderate /LPF (0-3)
[2019-02-22 08:34] LABS: CASTS None Seen /LPF (None Seen); CRYSTALS None Seen /LPF (None Seen); URINE WBC-REFLEX 6-15 Few /HPF (0-5)
[2019-02-22 08:37] LABS: TROPONIN-I <0.06 ng/mL (<0.06)
[2019-02-22] MEDS ORDERED: KEFLEX500 M1 PO (09:42)
[2019-02-22] MEDS ORDERED: ATIVAN2 MG PO (09:42)
[2019-02-22] MEDS ORDERED: NORCO 5-325 TA1 EAC1 PO (10:07)
[2019-02-22 10:23] VITALS: BP 171/77
--- NOTE | 2019-02-23 08:21 | EKG ---
[facility] [place] [address] ELECTROCARDIOGRAM REPORT Name: ANGELINACASI ANN Room #: DEP [facility] [id number] Admission: 02/22/19 Attend Phys: Discharge: 02/22/19 Date of : 48 Report #: [id number] THIS REPORT FOR: //name// [facility] ED Test Date: 2019-02-22 Test Time: 07:45:25 Pat Name: CASI ALFARO Department: Room: Gender: F Electronic Intelligence Officer: JARVIS : 1950 Requested By: Davonte Guillory Order Number: [id number] MD: Rudolph Hook Measurements Intervals [place] Rate: 64 P: 48 NC: 131 QRS: 48 QRSD: 80 T: 59 QT: 386 QTc: 399 Interpretive Statements Sinus rhythm Possible anteroseptal infarct, old Baseline wander in lead(s) V5,V6 Compared to ECG 02/08/2019 09:49:05 Septal Q waves are now present Sinus bradycardia no longer present Electronically Signed On 02-23-2019 8:21:23 PAYROLL AUDITOR by Rudolph Hook [email or web address] <ELECTRONICALLY SIGNED> By: Rudolph Hook MD, [facility] 02/23/1921 Rudolph Hook MD, [facility] /EPI
== END 2019-02-22 10:37 | disposition home or self-care (01) ==
LOC: ER 07:05
PROVIDERS: Emergency Medicine
DX: N39.0 Urinary tract infection, site not specified (principal); F41.9 Anxiety disorder, unspecified; I10 Essential (primary) hypertension; E27.1 Primary adrenocortical insufficiency; E78.5 Hyperlipidemia, unspecified; M54.9 Dorsalgia, unspecified; M79.7 Fibromyalgia; G89.29 Other chronic pain; G20 Parkinson's disease; Z87.891 Personal history of nicotine dependence; Z88.2 Allergy status to sulfonamides

== ENCOUNTER 2019-05-25 07:30 | Emergency (ER) | payer BC, OTHER ==
[~2019-05-25] VITALS: Ht 172.7 cm; Wt 63.0 kg
[~2019-05-25 07:30] MED LIST changes: +ATIVAN2 MG PO; +KEFLEX500 M1 PO; +NORCO 5-325 TA1 EAC1 PO; +TIZANIDINE HCL4 M1 PO
[2019-05-25 08:22] LABS: BASOPHILS 0.6 % (0.0-2.0); EOSINOPHILS 0.2 % (0.0-3.0); HEMATOCRIT 41.1 % (37.0-47.0); HEMOGLOBIN 14.2 gm/dL (12.0-15.0); MCH 33.7 pg (26.0-34.0); MCHC 34.6 g/dL (28.0-37.0); MCV 97.4 fL (80.0-100.0); MONOCYTES 6.5 % (1.0-8.0); PLATELET COUNT 136 thou/uL (150-400); POLYS 79.7 % (36.0-66.0); RBC 4.23 mil/uL (4.20-5.00); RDW 13.8 % (10.5-14.5); WBC 7.6 thou/uL (4.0-11.0)
[2019-05-25 08:28] LABS: CALCIUM 9.2 mg/dL (8.5-10.1); MAGNESIUM 1.6 mg/dL (1.8-2.4); POTASSIUM 3.7 mmol/L (3.5-5.1)
--- NOTE | 2019-05-25 09:05 | EKG ---
[facility] [place] [address] ELECTROCARDIOGRAM REPORT Name: CASI ALFARO Room #: REG M.R.#: [id number] Admission: 05/25/19 Attend Phys: Discharge: Date of : 48 Report #: [id number] THIS REPORT FOR: cc: Doug Benson Theodore M. DO Lundgren, Craig H. MD [facility] ~ THIS REPORT FOR: //name// [facility] ED Test Date: 2019-05-25 Test Time: 07:51:09 Pat Name: CASI ALFARO Department: Room: Gender: F Sales And Distribution Clerk: : 1950 Requested By: Pedro Whiteside Order Number: [id number] MD: Rudolph Hook Measurements Intervals [place] Rate: 65 P: 40 VT: 125 QRS: 39 QRSD: 81 T: 59 QT: 388 QTc: 404 Interpretive Statements Sinus rhythm No significant abnormality Compared to ECG 02/22/2019 07:45:25 Myocardial infarct finding no longer present Electronically Signed On 05-25-2019 9:04:11 CDT by Rudolph Hook [email or web address] <ELECTRONICALLY SIGNED> By: Rudolph Hook MD, FACC 05/25/19 0904 [id number] Rudolph Hook MD, [facility] /EPI
[2019-05-25 09:37] LABS: URINE BILIRUBIN NEGATIVE (Negative); URINE BLOOD TRACE (Negative); URINE CLARITY CLOUDY; URINE COLOR YELLOW; URINE GLUCOSE-RANDOM* NEGATIVE (Negative); URINE KETONES NEGATIVE (Negative); URINE PROTEIN (DIPSTICK) NEGATIVE (Negative); URINE SPECIFIC GRAVITY 1.025 (1.005-1.035); URINE UROBILINOGEN 0.2 E.U./dl (0.2-1.0)
[2019-05-25 09:38] LABS: URINE LEUKOCYTES-REFLEX 1+ (Negative); URINE NITRITE-REFLEX POSITIVE (Negative)
[2019-05-25 10:01] LABS: CASTS None Seen /LPF (None Seen); SQUAMOUS 4-10 Moderate /LPF (0-3)
[2019-05-25 10:02] LABS: URINE RBC 0-2 Rare /HPF (0-2); URINE WBC-REFLEX 6-15 Few /HPF (0-5)
[2019-05-25 10:03] LABS: BACTERIA-REFLEX >30 Many /HPF (None Seen); CALCIUM OXALATE >10 Many /LPF (None Seen)
[2019-05-25] MEDS ORDERED: KEFLEX500 M1 PO (10:05)
[2019-05-25 10:30] VITALS: BP 151/78
== END 2019-05-25 10:31 | disposition home or self-care (01) ==
LOC: ER 07:30
PROVIDERS: Emergency Medicine
DX: N39.0 Urinary tract infection, site not specified (principal); R42 Dizziness and giddiness; I10 Essential (primary) hypertension; E78.5 Hyperlipidemia, unspecified; M54.5 Low back pain; M79.7 Fibromyalgia; G89.29 Other chronic pain; G20 Parkinson's disease; Z90.710 Acquired absence of both cervix and uterus; Z87.891 Personal history of nicotine dependence; Z88.2 Allergy status to sulfonamides

== ENCOUNTER 2019-08-04 09:38 | Emergency (ER) | payer BC, OTHER ==
[~2019-08-04] VITALS: Ht 165.1 cm; Wt 54.4 kg
[2019-08-04] MEDS ORDERED: NEURONTIN 300M300 M2 PO (10:02)
[2019-08-04 10:35] LABS: ABSOLUTE NEUTROPHILS 3.6 thou/uL (1.4-8.2); BASOPHILS 0.8 % (0.0-2.0); EOSINOPHILS 0.6 % (0.0-3.0); HEMATOCRIT 40.6 % (37.0-47.0); LYMPHOCYTES 22.6 % (24.0-44.0); MCH 34.7 pg (26.0-34.0); MCHC 34.5 g/dL (28.0-37.0); MCV 100.5 fL (80.0-100.0); MONOCYTES 5.3 % (1.0-8.0); PLATELET COUNT 138 thou/uL (150-400); POLYS 70.7 % (36.0-66.0); RBC 4.04 mil/uL (4.20-5.00); RDW 13.7 % (10.5-14.5); WBC 5.1 thou/uL (4.0-11.0)
[2019-08-04 10:37] LABS: URINE BILIRUBIN NEGATIVE (Negative); URINE BLOOD TRACE (Negative); URINE COLOR YELLOW; URINE GLUCOSE-RANDOM* NEGATIVE (Negative); URINE KETONES NEGATIVE (Negative); URINE LEUKOCYTES-REFLEX NEGATIVE (Negative); URINE PROTEIN (DIPSTICK) NEGATIVE (Negative); URINE SPECIFIC GRAVITY 1.015 (1.005-1.035); URINE UROBILINOGEN 0.2 E.U./dl (0.2-1.0)
[2019-08-04 10:38] LABS: URINE NITRITE-REFLEX POSITIVE (Negative)
[2019-08-04 10:39] LABS: URINE CLARITY HAZY
[2019-08-04 10:47] LABS: CASTS None Seen /LPF (None Seen); CRYSTALS None Seen /LPF (None Seen); SQUAMOUS 0-3 Few /LPF (0-3); URINE WBC-REFLEX 0-5 Rare /HPF (0-5)
[2019-08-04 10:48] LABS: BACTERIA-REFLEX >30 Many /HPF (None Seen); URINE RBC 0-2 Rare /HPF (0-2)
[2019-08-04 10:50] LABS: ANION GAP 7 mmol/L (7-16); BUN 20 mg/dL (7-18); CALCIUM 8.6 mg/dL (8.5-10.1); CHLORIDE 107 mmol/L (98-107); CO2 24 mmol/L (21-32); CREATININE 1.1 mg/dL (0.6-1.0); GLUCOSE 116 mg/dL (74-106); SODIUM 138 mmol/L (136-145)
[2019-08-04 10:52] LABS: POTASSIUM 3.9 mmol/L (3.5-5.1)
[2019-08-04 10:54] LABS: AMP/METHAMP Negative (Negative); BARBITURATES Negative (Negative); BENZODIAZEPINES Negative (Negative); COCAINE Negative (Negative); METHADONE Negative (Negative); OPIATES Negative (Negative); PCP Negative (Negative)
[2019-08-04 10:54] LABS: ALBUMIN 3.3 g/dL (3.4-5.0); SGOT 24 U/L (15-37); SGPT 22 U/L (30-65); TOTAL BILIRUBIN 0.3 mg/dL (0.2-1.0); TOTAL PROTEIN 6.1 g/dL (6.4-8.2); TROPONIN-I <0.06 ng/mL (<0.06)
[2019-08-04 13:05] VITALS: BP 159/80
--- NOTE | 2019-08-05 10:09 | EKG ---
[facility] [place] [address] ELECTROCARDIOGRAM REPORT Name: CASI ALFARO Room #: DEP M.R.#: [id number] Admission: 08/04/19 Attend Phys: Discharge: 08/04/19 Date of : 48 Report #: [id number] THIS REPORT FOR: cc: Doug Benson Theodore M. 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
== END 2019-08-04 13:05 | disposition home or self-care (01) ==
LOC: ER 09:38
PROVIDERS: Emergency Medicine
DX: R53.1 Weakness (principal); R82.71 Bacteriuria; I10 Essential (primary) hypertension; E78.5 Hyperlipidemia, unspecified; Z90.710 Acquired absence of both cervix and uterus; Z87.891 Personal history of nicotine dependence; Z79.899 Other long term (current) drug therapy; Z88.2 Allergy status to sulfonamides

== ENCOUNTER 2020-07-14 16:15 | Emergency (ER) | payer BC, OTHER ==
[~2020-07-14] VITALS: Ht 165.1 cm; Wt 48.5 kg
[~2020-07-14 16:15] MED LIST changes: +NEURONTIN 300M300 M2 PO
[2020-07-14 16:41] LABS: URINE BILIRUBIN NEGATIVE (Negative); URINE BLOOD TRACE (Negative); URINE CLARITY CLEAR; URINE COLOR YELLOW; URINE GLUCOSE-RANDOM* NEGATIVE (Negative); URINE KETONES NEGATIVE (Negative); URINE LEUKOCYTES-REFLEX TRACE (Negative); URINE NITRITE-REFLEX NEGATIVE (Negative); URINE PROTEIN (DIPSTICK) NEGATIVE (Negative)
[2020-07-14 17:12] LABS: ABSOLUTE NEUTROPHILS 4.9 thou/uL (1.4-8.2); BASOPHILS 0.3 % (0.0-2.0); EOSINOPHILS 0.3 % (0.0-3.0); HEMATOCRIT 39.8 % (37.0-47.0); HEMOGLOBIN 13.6 gm/dL (12.0-15.0); LYMPHOCYTES 14.5 % (24.0-44.0); MCH 33.6 pg (26.0-34.0); MCHC 34.1 g/dL (28.0-37.0); MCV 98.6 fL (80.0-100.0); MONOCYTES 5.1 % (1.0-8.0); PLATELET COUNT 173 thou/uL (150-400); POLYS 79.8 % (36.0-66.0); RBC 4.04 mil/uL (4.20-5.00); RDW 15.4 % (10.5-14.5); WBC 6.1 thou/uL (4.0-11.0)
[2020-07-14 17:35] LABS: CALCIUM 8.8 mg/dL (8.5-10.1)
[2020-07-14 17:40] LABS: ALBUMIN 3.4 g/dL (3.4-5.0); TOTAL BILIRUBIN 0.4 mg/dL (0.2-1.0); TOTAL PROTEIN 6.5 g/dL (6.4-8.2)
[2020-07-14] MEDS ORDERED: MILK OF MA400 MG/5 M PO (20:17)
[2020-07-14 20:33] VITALS: BP 183/90
== END 2020-07-14 20:35 | disposition home or self-care (01) ==
LOC: ER 16:15
PROVIDERS: Physician Assistant
DX: K59.00 Constipation, unspecified (principal); G89.29 Other chronic pain; M79.7 Fibromyalgia; I10 Essential (primary) hypertension; E78.5 Hyperlipidemia, unspecified; Z87.891 Personal history of nicotine dependence; Z88.2 Allergy status to sulfonamides; Z79.899 Other long term (current) drug therapy

== ENCOUNTER 2020-07-24 07:58 | Emergency (ER) | payer BC, OTHER ==
[~2020-07-24] VITALS: Ht 165.1 cm; Wt 48.5 kg
[~2020-07-24 07:58] MED LIST changes: +MILK OF MA400 MG/5 M PO
[2020-07-24 08:57] LABS: ABSOLUTE NEUTROPHILS 4.9 thou/uL (1.4-8.2); BASOPHILS 0.7 % (0.0-2.0); EOSINOPHILS 1.2 % (0.0-3.0); HEMATOCRIT 41.2 % (37.0-47.0); LYMPHOCYTES 17.5 % (24.0-44.0); MCH 33.8 pg (26.0-34.0); MCHC 33.9 g/dL (28.0-37.0); MCV 99.6 fL (80.0-100.0); MONOCYTES 6.4 % (1.0-8.0); PLATELET COUNT 187 thou/uL (150-400); POLYS 74.2 % (36.0-66.0); RBC 4.14 mil/uL (4.20-5.00); RDW 15.3 % (10.5-14.5); WBC 6.6 thou/uL (4.0-11.0)
[2020-07-24 09:01] LABS: CALCIUM 8.8 mg/dL (8.5-10.1); CREATININE 1.1 mg/dL (0.6-1.0); POTASSIUM 3.4 mmol/L (3.5-5.1)
[2020-07-24 09:07] LABS: ALBUMIN 3.1 g/dL (3.4-5.0); TOTAL BILIRUBIN 0.3 mg/dL (0.2-1.0); TOTAL PROTEIN 6.2 g/dL (6.4-8.2)
[2020-07-24 09:10] LABS: URINE BILIRUBIN NEGATIVE (Negative); URINE BLOOD TRACE (Negative); URINE CLARITY SL CLOUDY; URINE COLOR YELLOW; URINE GLUCOSE-RANDOM* NEGATIVE (Negative); URINE KETONES TRACE (Negative); URINE LEUKOCYTES-REFLEX NEGATIVE (Negative); URINE NITRITE-REFLEX NEGATIVE (Negative); URINE PROTEIN (DIPSTICK) NEGATIVE (Negative); URINE SPECIFIC GRAVITY 1.025 (1.005-1.035)
[2020-07-24] MEDS ORDERED: REGLAN 10 MG TA10 MG PO (10:12)
[2020-07-24 10:33] VITALS: BP 170/92
== END 2020-07-24 10:26 | disposition home or self-care (01) ==
LOC: ER 07:58
PROVIDERS: Emergency Medicine
DX: R19.7 Diarrhea, unspecified (principal); R11.0 Nausea; R10.13 Epigastric pain; G89.29 Other chronic pain; M79.7 Fibromyalgia; I10 Essential (primary) hypertension; E78.5 Hyperlipidemia, unspecified; Z87.891 Personal history of nicotine dependence; Z88.2 Allergy status to sulfonamides; Z79.899 Other long term (current) drug therapy

== ENCOUNTER 2020-07-26 11:33 | Emergency (ER) | payer BC, OTHER ==
[~2020-07-26] VITALS: Ht 165.1 cm; Wt 47.2 kg
[~2020-07-26 11:33] MED LIST changes: +REGLAN 10 MG TA10 MG PO
[2020-07-26 12:18] LABS: ABSOLUTE NEUTROPHILS 3.7 thou/uL (1.4-8.2); BASOPHILS 0.8 % (0.0-2.0); EOSINOPHILS 0.9 % (0.0-3.0); HEMATOCRIT 39.7 % (37.0-47.0); HEMOGLOBIN 13.5 gm/dL (12.0-15.0); MCH 33.5 pg (26.0-34.0); MCHC 34.1 g/dL (28.0-37.0); MCV 98.5 fL (80.0-100.0); MONOCYTES 7.6 % (1.0-8.0); PLATELET COUNT 156 thou/uL (150-400); POLYS 69.7 % (36.0-66.0); RBC 4.04 mil/uL (4.20-5.00); RDW 14.8 % (10.5-14.5); WBC 5.3 thou/uL (4.0-11.0)
[2020-07-26 12:24] LABS: CALCIUM 8.6 mg/dL (8.5-10.1)
[2020-07-26 12:30] LABS: ALBUMIN 3.3 g/dL (3.4-5.0); TOTAL BILIRUBIN 0.5 mg/dL (0.2-1.0); TOTAL PROTEIN 6.1 g/dL (6.4-8.2)
[2020-07-26 12:32] LABS: URINE BILIRUBIN NEGATIVE (Negative); URINE BLOOD TRACE (Negative); URINE CLARITY CLEAR; URINE COLOR YELLOW; URINE GLUCOSE-RANDOM* NEGATIVE (Negative); URINE KETONES NEGATIVE (Negative); URINE LEUKOCYTES-REFLEX TRACE (Negative); URINE NITRITE-REFLEX NEGATIVE (Negative); URINE PROTEIN (DIPSTICK) NEGATIVE (Negative); URINE SPECIFIC GRAVITY 1.015 (1.005-1.035)
[2020-07-26 13:12] VITALS: BP 173/87
[2020-07-26] MEDS ORDERED: NORCO5 PO (15:04)
[2020-07-26] MEDS ORDERED: POTASSIUM20 PO (15:04)
[2020-07-26] MEDS ORDERED: LOPERAMIDE 2 MG2 M1 PO (15:04)
== END 2020-07-26 15:15 | disposition home or self-care (01) ==
LOC: ER 11:33
PROVIDERS: Physician Assistant
DX: R10.13 Epigastric pain (principal); R19.7 Diarrhea, unspecified; I10 Essential (primary) hypertension; E78.5 Hyperlipidemia, unspecified; G89.29 Other chronic pain; M54.9 Dorsalgia, unspecified; Z90.710 Acquired absence of both cervix and uterus; Z88.2 Allergy status to sulfonamides; Z87.891 Personal history of nicotine dependence

== ENCOUNTER 2020-08-25 10:07 | Emergency (ER) | payer BC, OTHER ==
[~2020-08-25] VITALS: Ht 165.1 cm; Wt 45.8 kg
[~2020-08-25 10:07] MED LIST changes: +LOPERAMIDE 2 MG2 M1 PO; +NORCO5 PO; +POTASSIUM20 PO
[2020-08-25 10:54] LABS: ABSOLUTE NEUTROPHILS 3.4 thou/uL (1.4-8.2); BASOPHILS 1.3 % (0.0-2.0); EOSINOPHILS 1.2 % (0.0-3.0); HEMATOCRIT 39.5 % (37.0-47.0); HEMOGLOBIN 13.8 gm/dL (12.0-15.0); LYMPHOCYTES 24.5 % (24.0-44.0); MCH 34.2 pg (26.0-34.0); MCHC 34.9 g/dL (28.0-37.0); MCV 97.8 fL (80.0-100.0); MONOCYTES 7.2 % (1.0-8.0); PLATELET COUNT 195 thou/uL (150-400); POLYS 65.8 % (36.0-66.0); RBC 4.03 mil/uL (4.20-5.00); RDW 13.4 % (10.5-14.5); WBC 5.1 thou/uL (4.0-11.0)
[2020-08-25 11:05] LABS: ANION GAP 11 mmol/L (7-16); BUN 12 mg/dL (7-18); CALCIUM 8.8 mg/dL (8.5-10.1); CHLORIDE 109 mmol/L (98-107); CO2 24 mmol/L (21-32); CREATININE 0.9 mg/dL (0.6-1.0); GLUCOSE 89 mg/dL (74-106); POTASSIUM 3.1 mmol/L (3.5-5.1); SODIUM 144 mmol/L (136-145)
[2020-08-25] MEDS ORDERED: CARVEDILOL25 MG PO (11:05)
[2020-08-25] MEDS ORDERED: CARBIDOPA-LEVO1 EAC5 PO (11:05)
[2020-08-25] MEDS ORDERED: TRAMADOL 50 MG50 MG PO ×2 (11:06→13:08)
[2020-08-25] MEDS ORDERED: HYDROCORTISONE PO ×2 (11:07→11:08)
[2020-08-25] MEDS ORDERED: MYRBETRIQ50 MG PO (11:08)
[2020-08-25 11:15] LABS: ALBUMIN 3.4 g/dL (3.4-5.0); SGOT 14 U/L (15-37); SGPT 19 U/L (14-59); TOTAL BILIRUBIN 0.5 mg/dL (0.2-1.0); TOTAL PROTEIN 6.7 g/dL (6.4-8.2); TROPONIN-I <0.06 ng/mL (<0.06)
[2020-08-25 12:42] VITALS: BP 183/85
[2020-08-25 12:44] LABS: URINE BILIRUBIN NEGATIVE (Negative); URINE BLOOD NEGATIVE (Negative); URINE CLARITY CLEAR; URINE COLOR YELLOW; URINE GLUCOSE-RANDOM* NEGATIVE (Negative); URINE KETONES NEGATIVE (Negative); URINE LEUKOCYTES-REFLEX 1+ (Negative); URINE NITRITE-REFLEX NEGATIVE (Negative); URINE PROTEIN (DIPSTICK) NEGATIVE (Negative); URINE SPECIFIC GRAVITY 1.015 (1.005-1.035)
[2020-08-25 12:55] LABS: MUCUS >6 Heavy strn/LPF (None Seen); SQUAMOUS >10 Many /LPF (0-3)
[2020-08-25 12:56] LABS: BACTERIA-REFLEX 1-9 Few /HPF (None Seen); CASTS None Seen /LPF (None Seen); URINE RBC 1-2 Rare /HPF (NONE SEEN); URINE WBC-REFLEX 0-5 Rare /HPF (0-5)
[2020-08-25 12:58] LABS: CALCIUM OXALATE 4-10 Moderate /LPF (None Seen)
== END 2020-08-25 13:43 | disposition home or self-care (01) ==
LOC: ER 10:07
PROVIDERS: Emergency Medicine
DX: M79.7 Fibromyalgia (principal); E87.6 Hypokalemia; F41.9 Anxiety disorder, unspecified; I10 Essential (primary) hypertension; G20 Parkinson's disease; E78.5 Hyperlipidemia, unspecified; Z90.710 Acquired absence of both cervix and uterus; Z87.891 Personal history of nicotine dependence; Z79.899 Other long term (current) drug therapy; Z88.2 Allergy status to sulfonamides

== ENCOUNTER → 2020-09-24 | Outpatient (CLI) | payer BC, OTHER ==
[~2020-09-24] MED LIST changes: +CARBIDOPA-LEVO1 EAC5 PO; +CARVEDILOL25 MG PO; +HYDROCORTISONE PO
== END ==
LOC: ULTRA 08:35
PROVIDERS: ATTEND Specialist
DX: R11.0 Nausea (principal)

== ENCOUNTER 2021-01-05 10:58 | Emergency (ER) | payer BC, OTHER ==
[~2021-01-05] VITALS: Ht 157.5 cm; Wt 59.0 kg
[2021-01-05 11:21] LABS: HEMATOCRIT 34.6 % (37.0-47.0); HEMOGLOBIN 11.6 gm/dL (12.0-15.0); MCHC 33.4 g/dL (28.0-37.0); MCV 95.7 fL (80.0-100.0); RBC 3.62 mil/uL (4.20-5.00); RDW 13.8 % (10.5-14.5); WBC 5.4 thou/uL (4.0-11.0)
[2021-01-05 11:34] LABS: CALCIUM 8.6 mg/dL (8.5-10.1); POTASSIUM 4.1 mmol/L (3.5-5.1)
[2021-01-05 11:59] LABS: URINE BILIRUBIN NEGATIVE (Negative); URINE BLOOD NEGATIVE (Negative); URINE CLARITY SL CLOUDY; URINE COLOR YELLOW; URINE GLUCOSE-RANDOM* NEGATIVE (Negative); URINE KETONES NEGATIVE (Negative); URINE LEUKOCYTES-REFLEX NEGATIVE (Negative); URINE NITRITE-REFLEX NEGATIVE (Negative); URINE PROTEIN (DIPSTICK) NEGATIVE (Negative); URINE SPECIFIC GRAVITY 1.015 (1.005-1.035)
[2021-01-05 12:07] LABS: AMP/METHAMP Negative (Negative); BARBITURATES Negative (Negative); BENZODIAZEPINES Negative (Negative); COCAINE Negative (Negative); METHADONE Negative (Negative); OPIATES Negative (Negative); PCP Negative (Negative)
[2021-01-05 13:51] LABS: ALBUMIN 3.3 g/dL (3.4-5.0); DIRECT BILIRUBIN 0.1 mg/dL (<0.1-0.2); TOTAL BILIRUBIN 0.5 mg/dL (0.2-1.0); TOTAL PROTEIN 6.1 g/dL (6.4-8.2)
[2021-01-05 14:05] LABS: SALICYLATE < 2.8 mg/dL (2.8-20.0)
[2021-01-05 14:13] VITALS: BP 136/63
[2021-01-05] MEDS ORDERED: AUGMENTIN 875-1 EACH PO (14:21)
--- NOTE | 2021-01-06 09:01 | EKG ---
[place] [address] [facility] [place] [address] ELECTROCARDIOGRAM REPORT Name: CASI ALFARO Room #: [facility]P [id number] Admission: 01/05/21 Attend Phys: Discharge: 01/05/21 Date of : 48 Report #: [id number] [facility] ED Test Date: 2021-01-05 Test Time: 11:17:28 Pat Name: CASI ALFARO Department: Room: Gender: F Rn Surgery: MICH : 1950 Requested By: Tyler Patel Order Number: [id number] MD: Rudolph Hook Measurements Intervals [place] Rate: 78 P: [place]: QRS: -24 QRSD: 101 T: 146 QT: 365 QTc: 416 Interpretive Statements Atrial flutter with predominant 3:1 AV block Nonspecific T wave abnormality Compared to ECG 08/04/2019 10:23:04 Atrial flutter has replaced sinus rhythm Electronically Signed On 01-06-2021 9:01:31 HEALTHCARE CORPORATE ACCOUNT DIRECTOR by Rudolph Hook [email or web address] <ELECTRONICALLY SIGNED> By: Rudolph Hook MD, [facility] 01/06/21 0901 1117 1117 Rudolph Hook MD, FACC /EPI
== END 2021-01-05 14:20 | disposition home or self-care (01) ==
LOC: ER 10:58
PROVIDERS: Emergency Medicine
DX: J18.9 Pneumonia, unspecified organism (principal); Z20.822 Contact with and (suspected) exposure to COVID-19; R10.817 Generalized abdominal tenderness; G20 Parkinson's disease; I10 Essential (primary) hypertension; E78.5 Hyperlipidemia, unspecified; M79.7 Fibromyalgia; Z90.710 Acquired absence of both cervix and uterus; Z79.891 Long term (current) use of opiate analgesic; Z79.1 Long term (current) use of non-steroidal anti-inflammatories (NSAID); Z79.899 Other long term (current) drug therapy; Z88.2 Allergy status to sulfonamides; Z87.891 Personal history of nicotine dependence

== ENCOUNTER 2021-01-20 06:54 | Emergency (ER) | payer BC, OTHER ==
[~2021-01-20] VITALS: Ht 165.1 cm; Wt 45.8 kg
[~2021-01-20 06:54] MED LIST changes: +AUGMENTIN 875-1 EACH PO
[2021-01-20 07:52] LABS: WBC 7.3 thou/uL (4.0-11.0)
[2021-01-20 07:55] LABS: HEMATOCRIT 39.4 % (37.0-47.0); HEMOGLOBIN 12.9 gm/dL (12.0-15.0); MCH 30.7 pg (26.0-34.0); MCHC 32.6 g/dL (28.0-37.0); MCV 94.1 fL (80.0-100.0); RBC 4.19 mil/uL (4.20-5.00); RDW 14.3 % (10.5-14.5)
[2021-01-20 08:03] LABS: POTASSIUM 3.5 mmol/L (3.5-5.1)
[2021-01-20 08:13] LABS: ALBUMIN 3.7 g/dL (3.4-5.0); TOTAL BILIRUBIN 0.5 mg/dL (0.2-1.0); TOTAL PROTEIN 6.9 g/dL (6.4-8.2)
[2021-01-20 08:22] LABS: URINE BILIRUBIN NEGATIVE (Negative); URINE BLOOD NEGATIVE (Negative); URINE CLARITY CLOUDY; URINE COLOR YELLOW; URINE GLUCOSE-RANDOM* NEGATIVE (Negative); URINE KETONES NEGATIVE (Negative); URINE LEUKOCYTES-REFLEX NEGATIVE (Negative); URINE NITRITE-REFLEX NEGATIVE (Negative); URINE PROTEIN (DIPSTICK) NEGATIVE (Negative); URINE SPECIFIC GRAVITY 1.015 (1.005-1.035); URINE UROBILINOGEN 0.2 E.U./dl (0.2-1.0)
[2021-01-20] MEDS ORDERED: ZOFRAN ODT4 MG PO (11:45)
[2021-01-20] MEDS ORDERED: NORCO5 PO (11:45)
[2021-01-20 11:50] VITALS: BP 156/87
[2021-01-20 13:06] LABS: ABSOLUTE NEUTROPHILS 4.3 thou/uL (1.4-8.2)
[2021-01-20 13:07] LABS: ANISOCYTOSIS 1+; PLATELET COUNT 189 thou/uL (150-400)
--- NOTE | 2021-01-21 07:14 | EKG ---
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: : 1950 Requested By: Elvira Saunders Order Number: [id number] MD: Shahbaz Sanford Measurements Intervals [place] Rate: 84 P: 52 MI: 121 QRS: 63 QRSD: 83 T: 61 QT: 387 QTc: 458 Interpretive Statements Sinus rhythm Consider left ventricular hypertrophy Compared to ECG 01/05/2021 11:17:28 Atrial flutter no longer present AV block, advanced (high-grade) no longer present T-wave abnormality no longer present Electronically Signed On 01-21-2021 7:13:51 SAND WORKER by Shahbaz Sanford [email or web address] <ELECTRONICALLY SIGNED> By: Shahbaz Sanford MD, [facility] 01/21/21 [id number] Shahbaz Sanford MD, FAC /EPI
== END 2021-01-20 11:50 | disposition home or self-care (01) ==
LOC: ER 06:54
PROVIDERS: Emergency Medicine
DX: K85.90 Acute pancreatitis without necrosis or infection, unspecified (principal); Z20.822 Contact with and (suspected) exposure to COVID-19; F41.9 Anxiety disorder, unspecified; M79.7 Fibromyalgia; I10 Essential (primary) hypertension; E78.5 Hyperlipidemia, unspecified; G20 Parkinson's disease; Z90.710 Acquired absence of both cervix and uterus; Z86.16 Personal history of COVID-19; Z79.891 Long term (current) use of opiate analgesic; Z79.899 Other long term (current) drug therapy; Z88.2 Allergy status to sulfonamides; Z87.891 Personal history of nicotine dependence

== ENCOUNTER 2021-01-21 12:07 | Emergency (ER) | payer BC, OTHER ==
[~2021-01-21] VITALS: Ht 165.1 cm; Wt 43.1 kg
[~2021-01-21 12:07] MED LIST changes: +ZOFRAN ODT4 MG PO
[2021-01-21 13:51] LABS: ABSOLUTE NEUTROPHILS 3.5 thou/uL (1.4-8.2); BASOPHILS 1.2 % (0.0-2.0); HEMATOCRIT 37.9 % (37.0-47.0); HEMOGLOBIN 12.4 gm/dL (12.0-15.0); LYMPHOCYTES 22.6 % (24.0-44.0); MCH 30.9 pg (26.0-34.0); MCHC 32.7 g/dL (28.0-37.0); MCV 94.5 fL (80.0-100.0); MONOCYTES 4.1 % (1.0-8.0); PLATELET COUNT 231 thou/uL (150-400); POLYS 71.1 % (36.0-66.0); RBC 4.01 mil/uL (4.20-5.00); RDW 14.2 % (10.5-14.5); WBC 4.9 thou/uL (4.0-11.0)
[2021-01-21 14:47] LABS: ALBUMIN 3.2 g/dL (3.4-5.0); CALCIUM 8.9 mg/dL (8.5-10.1); CREATININE 0.8 mg/dL (0.6-1.0); POTASSIUM 3.6 mmol/L (3.5-5.1); TOTAL BILIRUBIN 0.2 mg/dL (0.2-1.0); TOTAL PROTEIN 6.1 g/dL (6.4-8.2)
[2021-01-21 15:17] VITALS: BP 136/84
== END 2021-01-21 15:16 | disposition home or self-care (01) ==
LOC: ER 12:07
PROVIDERS: Emergency Medicine
DX: R10.12 Left upper quadrant pain (principal); F41.9 Anxiety disorder, unspecified; M79.7 Fibromyalgia; I10 Essential (primary) hypertension; E78.5 Hyperlipidemia, unspecified; G20 Parkinson's disease; Z86.16 Personal history of COVID-19; Z90.710 Acquired absence of both cervix and uterus; Z79.891 Long term (current) use of opiate analgesic; Z79.899 Other long term (current) drug therapy; Z79.1 Long term (current) use of non-steroidal anti-inflammatories (NSAID); Z88.2 Allergy status to sulfonamides; Z87.891 Personal history of nicotine dependence

== ENCOUNTER 2021-01-23 05:57 | Emergency (ER) | payer BC, OTHER ==
[~2021-01-23] VITALS: Ht 165.1 cm; Wt 43.1 kg
[2021-01-23 06:40] LABS: URINE BILIRUBIN NEGATIVE (Negative); URINE BLOOD NEGATIVE (Negative); URINE COLOR YELLOW; URINE GLUCOSE-RANDOM* NEGATIVE (Negative); URINE KETONES NEGATIVE (Negative); URINE LEUKOCYTES-REFLEX TRACE (Negative); URINE NITRITE-REFLEX NEGATIVE (Negative); URINE PROTEIN (DIPSTICK) NEGATIVE (Negative); URINE UROBILINOGEN 0.2 E.U./dl (0.2-1.0)
[2021-01-23 06:44] LABS: URINE CLARITY HAZY
[2021-01-23 07:01] LABS: ABSOLUTE NEUTROPHILS 2.6 thou/uL (1.4-8.2); BASOPHILS 1.1 % (0.0-2.0); EOSINOPHILS 2.3 % (0.0-3.0); HEMATOCRIT 37.7 % (37.0-47.0); HEMOGLOBIN 12.2 gm/dL (12.0-15.0); LYMPHOCYTES 33.6 % (24.0-44.0); MCH 30.7 pg (26.0-34.0); MCHC 32.4 g/dL (28.0-37.0); MCV 94.7 fL (80.0-100.0); MONOCYTES 6.3 % (1.0-8.0); PLATELET COUNT 162 thou/uL (150-400); POLYS 56.7 % (36.0-66.0); RBC 3.97 mil/uL (4.20-5.00); RDW 13.8 % (10.5-14.5); WBC 4.5 thou/uL (4.0-11.0)
[2021-01-23 07:49] LABS: CREATININE 0.9 mg/dL (0.6-1.0); POTASSIUM 3.7 mmol/L (3.5-5.1)
[2021-01-23 07:54] LABS: ALBUMIN 3.4 g/dL (3.4-5.0); TOTAL BILIRUBIN 0.2 mg/dL (0.2-1.0); TOTAL PROTEIN 6.4 g/dL (6.4-8.2)
[2021-01-23] MEDS ORDERED: MIRALAX119 GM PO (08:52)
[2021-01-23] MEDS ORDERED: XANAX 0.5 MG0.5 MG PO (08:52)
[2021-01-23] MEDS ORDERED: NAPROSYN500 MG PO (08:52)
[2021-01-23 09:11] VITALS: BP 183/97
== END 2021-01-23 09:27 | disposition home or self-care (01) ==
LOC: ER 05:57
PROVIDERS: Emergency Medicine
DX: R10.13 Epigastric pain (principal); F41.9 Anxiety disorder, unspecified; M79.7 Fibromyalgia; I10 Essential (primary) hypertension; E78.5 Hyperlipidemia, unspecified; F20.9 Schizophrenia, unspecified; Z86.16 Personal history of COVID-19; Z90.710 Acquired absence of both cervix and uterus; Z79.1 Long term (current) use of non-steroidal anti-inflammatories (NSAID); Z79.891 Long term (current) use of opiate analgesic; Z79.899 Other long term (current) drug therapy; Z88.2 Allergy status to sulfonamides; Z87.891 Personal history of nicotine dependence

== ENCOUNTER 2021-02-20 10:12 | Emergency (ER) | payer BC, OTHER ==
[~2021-02-20] VITALS: Ht 165.1 cm; Wt 43.1 kg
[~2021-02-20 10:12] MED LIST changes: +MIRALAX119 GM PO; +NAPROSYN500 MG PO; +XANAX 0.5 MG0.5 MG PO
[2021-02-20 10:29] VITALS: BP 160/84
[2021-02-20] MEDS ORDERED: METHOCARBAMOL500 M2 PO (11:12)
== END 2021-02-20 11:21 | disposition home or self-care (01) ==
LOC: ER 10:12
DX: G89.29 Other chronic pain (principal); F41.9 Anxiety disorder, unspecified; M79.7 Fibromyalgia; F02.80 Dementia in other diseases classified elsewhere, unspecified severity, without behavioral disturbance, psychotic disturbance, mood disturbance, and anxiety; I10 Essential (primary) hypertension; E78.5 Hyperlipidemia, unspecified; Z86.16 Personal history of COVID-19; Z90.710 Acquired absence of both cervix and uterus; Z79.891 Long term (current) use of opiate analgesic; Z79.899 Other long term (current) drug therapy; Z88.2 Allergy status to sulfonamides; Z87.891 Personal history of nicotine dependence